=== PATIENT | male | born 1990 | race Caucasian/White ===

== ENCOUNTER 2019-02-13 22:33 | Emergency (ER) | payer BC, OTHER ==
[2019-02-13] MEDS ORDERED: LIDOCAINE 1%-EPI 1:100,000 20 ML VIAL SQ STA (23:10)
[2019-02-13] MEDS ORDERED: DIPH,PERTUS(ACELL)TETVAC-LF 0.5 ML VIAL IM ONE (23:10)
--- NOTE | 2019-02-13 23:14 | ED ---
General Adult HPI - General Chief complaint: Head Injury Stated complaint: Head injury Time Seen by Provider: 02/13/19 23:02 Source: patient, family Mode of arrival: ambulatory Limitations: no limitations - History of Present Illness Initial comments: Dictation was produced using [employer] dictation software. please excuse any grammatical, word or spelling errors. Chief Complaint: 28-year-old male presents with scalp injury. History of Present Illness: Patient 28-year-old male who was at home when a metal bookshelf fell on causing him to have a cut on his head. Denies any loss of consciousness. Patient immediately noted bleeding to the top of his head. The ROS documented in this emergency department record has been reviewed and confirmed by me. Those systems with pertinent positive or negative responses have been documented in the HPI. All other systems are other negative and/or noncontributory. PHYSICAL EXAM: General Impression: Alert and oriented x3, not in acute distress HEENT: extra-ocular movements intact, pupils equal and reactive to light bilaterally, mucous membranes moist, 1 cm laceration to the vertex of the head no active hemorrhage Cardiovascular: Heart regular rate and rhythm, S1&S2 audible, no murmurs, rubs or gallops Chest: Lungs clear to auscultation bilaterally, no rhonchi, no wheeze, no rales Abdomen: Bowel sounds present, abdomen soft, non-tender, non-distended, no organomegaly Musculoskeletal: Pulses present and equal in all extremities, no peripheral edema Motor: no focal deficits noted Neurological: CN II-XII grossly intact, no focal motor or sensory deficits noted Skin: Intact with no visualized rashes Psych: Normal affect and mood ED course: 28-year-old male presents with scalp laceration. Vital signs upon arrival are within acceptable limits. Laceration repaired using suzan after local subcutaneous anesthesia. Patient tolerated procedure well. Told to have suzan removed in 10 days. - Related Data Home Medications Medication Instructions Recorded Confirmed No Known Home Medications 02/13/19 02/13/19 Allergies Allergy/AdvReac Type Severity Reaction Status Date / Time No Known Allergies Allergy Verified 02/13/19 22:55 Review of Systems ROS Statement: Those systems with pertinent positive or pertinent negative responses have been documented in the HPI. ROS Other: All systems not noted in ROS Statement are negative. Past Medical History Past Medical History: No Reported History History of Any Multi-Drug Resistant Organisms: None Reported Past Surgical History: No Surgical Hx Reported Past Psychological History: No Psychological Hx Reported Smoking Status: Current every day smoker Past Alcohol Use History: None Reported Past Drug Use History: None Reported General Exam Limitations: no limitations Course Vital Signs 02/13/19 22:41 Temperature 98.3 F Pulse Rate 111 H Respiratory 20 Rate Blood Pressure 153/94 O2 Sat by Pulse 98 Oximetry Disposition Clinical Impression: Scalp laceration Disposition: HOME SELF-CARE Condition: Good Instructions (If sedation given, give patient instructions): Laceration (DC) Is patient prescribed a controlled substance at d/c from ED?: No Referrals: Anton Puentes DO [Primary Care Provider] - 1-2 days Time of Disposition: 23:14
[2019-02-13 23:54] VITALS: BP 118/80; PULSE 91; RESP 18; TEMP 98.2
== END 2019-02-13 23:52 | disposition home or self-care (01) ==
LOC: EC 22:33
DX: S01.01XA Laceration without foreign body of scalp, initial encounter (principal); Z23 Encounter for immunization; F17.200 Nicotine dependence, unspecified, uncomplicated; W20.8XXA Other cause of strike by thrown, projected or falling object, initial encounter; Y92.009 Unspecified place in unspecified non-institutional (private) residence as the place of occurrence of the external cause
CPT/HCPCS: 12001; 90471; 90715; 99283